=== PATIENT | female | born 1990 | race Caucasian/White ===

== ENCOUNTER → 2022-07-06 11:23 | Outpatient (BNVA) | payer OTHER, SELFPAY | PROVIDERS: Visit Provider Emergency Medicine | DX: R10.9 Unspecified abdominal pain (principal); R11.0 Nausea; R19.8 Other specified symptoms and signs involving the digestive system and abdomen; R10.13 Epigastric pain | CPT/HCPCS: 80053; 83690; 85025 ==

== ENCOUNTER → 2022-07-07 14:38 | Outpatient (BNVA) | payer OTHER, SELFPAY | PROVIDERS: Visit Provider Emergency Medicine | DX: R19.8 Other specified symptoms and signs involving the digestive system and abdomen (principal) | CPT/HCPCS: 87338 ==

== ENCOUNTER 2022-08-01 09:56 | Outpatient (CLI) | payer OTHER, SELFPAY ==
--- NOTE | 2022-08-01 10:00 | US_ITS ---
WS: [id number] RIGHT UPPER QUADRANT ULTRASOUND HISTORY: R10.9 - Unspecified abdominal pain COMPARISON: None available. Liver: 15.5 cm in length. Normal size liver. No bile duct dilatation or mass. Portal Vein: Normal hepatopetal flow with monophasic waveform. Gallbladder: Large amount shadowing gallbladder fossa. Findings are consistent with a stone filled ga llbladder. The wall appears mildly thickened measuring up to 3 mm. No adjacent fluid. CBD: 0.4 cm Pancreas: Normal size and echogenicity. Right kidney: 11.4 cm in length. Normal size and echogenicity. No hydronephrosis or mass. Aorta and IVC: Unremarkable abdominal aorta and IVC. No ascites. US/US gall bladder [id number] IMPRESSION: 1. Cholelithiasis. Stone filled gallbladder. 2. No bile duct dilatation.
== END 2022-08-01 09:57 | disposition home or self-care (01) ==
LOC: RAD 09:57
PROVIDERS: Visit Provider Emergency Medicine
DX: R10.9 Unspecified abdominal pain (principal); K80.20 Calculus of gallbladder without cholecystitis without obstruction
CPT/HCPCS: 76705

== ENCOUNTER 2022-10-03 09:51 | Day surgery (SDC) | payer OTHER, SELFPAY ==
[2022-10-03] VITALS (8 sets, daily range): BP systolic 127–148; BP diastolic 70–112; PULSE 65–85; RESP 14–18; TEMP 36.2–36.5; O2SAT 95–98
[2022-10-03] MEDS: sodium chloride 0.9% 1,000 ML 30 ML IV (10:29)
[2022-10-03] MEDS: acetaminophen 1,000 MG/100 ML PIGGYBACK 400 MG IV (10:34)
[2022-10-03] MEDS: scopolamine 1.5 Patch 1 PATCH TRANSDERMA (10:36)
[2022-10-03] MEDS: heparin 5,000 unit/mL INJ 1 mL 2000 UNIT SUBCUT (10:36)
--- NOTE | 2022-10-03 10:50 | P.HP_ITS ---
Same Day Surgery H&P Indication for Procedure/HPI DATE OF PROCEDURE: October 03, 2022 CHIEF COMPLAINT/INDICATIONFOR SURGICAL PROCEDURE: I am here for gallbladder surgery PREOP DIAGNOSIS: Symptomatic cholelithiasis PLANNED PROCEDURE: Operation Date: 10/03/22 11:30 Proposed Procedures p 04468 lap fani possible open R10.9(Not Applicable) - Sage Stevens MD 07/06/2022 Patient is a 32 year old female who presents for GI issues. Patient stated that yesterday she had ate some gore. 4 hours after eating patient started having sever discomfort in the upper mid abd and esophagus. Patient is nauseous and vomiting. Patient is having discomfort today in upper mid abd and lower esophagus. Patient states this is not the first time with these issues and previously has had diarrhea as a symptoms. Patient tried to take Nexium last night but was unable to keep it down. Patient also seen a [facility]ini doc today. 10/03/2022 Patient comes today for laparoscopic cholecystectomy. Ultrasound gallbladder showed Liver: 15.5 cm in length. Normal size liver. No bile duct dilatation or mass. Portal Vein: Normal hepatopetal flow with monophasic waveform. Gallbladder: Large amount shadowing gallbladder fossa. Findings are consistent with a stone filled gallbladder. The wall appears mildly thickened measuring up to 3 mm. No adjacent fluid. CBD: 0.4 cm Pancreas: Normal size and echogenicity. Right kidney: 11.4 cm in length. Normal size and echogenicity. No hydronephrosis or mass. Aorta and IVC: Unremarkable abdominal aorta and IVC. No ascites. US/US gall bladder [id number] IMPRESSION: ? 1.? Cholelithiasis. Stone filled gallbladder. 2.? No bile duct dilatation. ROS All systems have been reviewed negative except as for the above or per problem list. Medications/Allergies* Home Medications Medication Instructions Recorded Confirmed Type norethindrone acetate 1 mg-ethinyl 1 tab PO DAILY 07/06/22 09/30/22 History estradiol 20 mcg tablet (Junel) Allergies/Adverse Reactions Allergy/AdvReac Type Severity Reaction Status Date / Time No Known Allergies Allergy Verified 08/25/22 17:11 Current Medications: Generic Name Dose Route Start Last Admin Trade Name Freq PRN Reason Stop Dose Admin Sodium Chloride 1,000 mls @ 30 mls/hr 10/03/22 10:15 10/03/22 10:29 Sodium Chloride 0.9% IV 10/04/22 10:14 30 mls/hr .Q24H KATERINE Administration Pertinent History/Comorbid Conditions* Social History Smoking and tobacco status: never smoked Pertinent Exam Findings alert, oriented x 3, regular rate & rhythm and procedure specific exam findings (Abdominal exam nontender nondistended soft) Recommendations Surgery/Procedure today (Laparoscopic cholecystectomy possible open) Other Plans: Plan of care; After thorough history physical examination and reviewing the chart and images with my personal intrepreatation.I counseled the patient for laparoscopic cholecystectomy possible open, indications risks including but not limited injury to the common bile duct and/or other viscera,that may require potential future surgical interventions including but not limited to ERCP and or laparatomy that may include Hepatobiliary surgery.Benefits and alternatives all discussed with the patient, and patient did agree to proceed accordingly. All questions have been answered and all concerns have been addressed to patient's satisfaction. Rationale was carefully and clearly discussed with the patient.Appropriate informed consent have been reviewed and signed. Coding Level of Care Code Acute Food Service Supervisor for Reinaldo Corbett
--- NOTE | 2022-10-03 10:54 | P.ANESASSM_ITS ---
Pre-Anesthetic Assessment Height/Weight: Height 1.7 m Weight 88.904 kg Temp Pulse Resp BP Pulse Ox O2 Del Method 97.2 F L 82 18 141/88 97 10/03/22 10:18 10/03/22 10:18 10/03/22 10:18 10/03/22 10:18 10/03/22 10:18 10/03/22 10:18 Preop Diagnosis: Symptomatic cholelithiasis Operation Date: 10/03/22 11:30 Proposed Procedures p 54957 lap fani possible open R10.9(Not Applicable) - Sage Stevens MD Familial anesthetic complications: None Was Beta Corona taken within 24 hours: N/A Was Clonidine taken within 24 hours: N/A Last intake: Intake Last Liquid Date 10/02/22 Last Liquid Time 20:00 Last Solid Date 10/02/22 Last Solid Time 20:00 Social No alcohol and No tobacco Exam alert, oriented x 3, clear to auscultation bilaterally and regular rate & rhythm Airway Mallampati: Class II Dentition: full GI Gastroesophageal Reflux Disease Anesthetic Plan ASA status: 2 Anesthesia: General Risk of > 500 ml blood loss (7ml/kg in children): No Medications/Allergies Home Medications Medication Instructions Recorded Confirmed Last Taken Type famotidine 20 mg tablet (Acid 20 mg PO BID 6 weeks #84 tabs 07/06/22 09/30/22 09/22/22 Rx Head Baggage Porter (famotidine)) norethindrone acetate 1 mg-ethinyl 1 tab PO DAILY 07/06/22 09/30/22 10/02/22 History estradiol 20 mcg tablet (Junel) Allergies Allergy/AdvReac Type Severity Reaction Status Date / Time No Known Allergies Allergy Verified 08/25/22 17:11 Current Medications Generic Name Dose Route Start Last Admin Trade Name Freq PRN Reason Stop Dose Admin Sodium Chloride 1,000 mls @ 30 mls/hr 10/03/22 10:15 10/03/22 10:29 Sodium Chloride 0.9% IV 10/04/22 10:14 30 mls/hr .Q24H KATERINE Administration PFSH Anesthesia Social History Smoking and tobacco status: never smoked Female Reproductive History Date of last menstrual period: 09/05/22 Spontaneous abortions: No Data Anesthesia Cardiac Studies: No Data to Display
[2022-10-03 11:07] LABS: OR HCG Qualitative Urine Negative (Negative)
[2022-10-03] MEDS: ampicillin-sulbactam 3 GM in sodium chloride 0.9% (plus) 50 ML IV (11:07)
[2022-10-03] MEDS: lidocaine 1% INJ 20 mL INJECTION (11:50)
--- NOTE | 2022-10-03 13:01 | SUR.PHASEI ---
1256 PT TO PACU 5 PT AWAKES TO VOICE, GOOD RESP EFFORT NOTED ORAL AIRWAY OUT ON ARRIVAL, MONITOR SR WITH NO ECTOPY NOTED IV TO LT HAND #20 WITH 100ML NS UP AT KVO RATE PER GRAVITY, ID BRACELET TO RT WRIST , PT ID'D WITH WITH 2 IDENTIFIERS, ABDOMEN SOFT WITH 4 SITES WITH SKIN GLUE D/I BILAT SCDS ON. PT AWAKES AND VERBALLY DENIES PAIN AND NAUSEA.
--- NOTE | 2022-10-03 13:10 | PM.OP ---
Operative Report Date of procedure: October 03, 2022 Pre-op diagnosis: Preop Diagnosis Symptomatic cholelithiasis Post-op findings: Chronic calculus cholecystitis with intrahepatic component Procedure done: Laparoscopic cholecystectomy Implants: Surgicel and Surgi-Linwood Specimens removed/disposition: Gallbladder and contents Surgeon: Sage Stevens MD Milk Condenser: Surgical elmer Soni and Martina Circulating nurse Rupali Anesthesia: General (Billy Garsia and Dr. Hernandez) Estimated blood loss (mL): 25 IV fluids (mL): 800 Procedure: Patient was identified in the holding area and taken back to the operative suite, placed in supine position intubated by anesthesia . Time-out was done verifying the patient's name/date of /planned procedure and destination after the procedure, all were in agreement. SCDs confirmed to be functioning, preoperative antibiotics administered per protocol, and beta maribell protocol was confirmed. Patient was appropriately secured to the table, footboard was applied to the OR table, before prep and drape anesthesia was asked to tilt the table back and forth to make sure that the patient is appropriately secured and she was. Prep and drape of the abdomen was done under the usual sterile technique, followed by that supraumbilical skin incision,skin incision was done by a 15 blade knife, and stay sutures were applied to the fascia and Michaels trocar technique was used to enter the abdominal without injuring any abdominal viscera, started by low flow gas insufflation followed by a high flow, started with a 10 mm laparoscope and under direct vision there was no evidence of any injuries, the scope then switched to a 30? ,10 millimeter scope and under direct visualization 5 millimeter trocar was inserted in the epigastric region followed by two 5 mm trocars were inserted in the right upper quadrant that was done after injection of local lidocaine 2% at all incision sites. Gallbladder showed chronic calculus cholecystitis Patient was then positioned in the head up and tilted to the left. Ratcheted forceps were introduced into the lateral most 5mm port and was applied unto the fundus of the gallbladder cephalad and using Bullet forceps the infundibulum of the gallbladder was retracted laterally. Using [place] forceps then L-hook cautery to dissect the peritoneum overlying the Calot's triangle which was then opened medially and laterally until the cystic duct and the cystic artery were skeletonized. Dissection was carried along the body of the gallbladder and after ensuring critical view of safety was identfied. Cystic duct and cystic artery where seen connected to the gallbladder. Clips were applied on the cystic duct towards the common bile duct 1 towards the gallbladder then divided is in sharp scissors, 2 clips were then applied onto the cystic artery and 1 towards the gallbladder and divided by sharp scissors. Additional vessel was clipped and divided. Dissection was then carried along of the gallbladder from the gallbladder fossa using cautery as well as sharp dissection with heat energy. The gallbladder then was dissected out from the gallbladder fossa totally, noticed there was intrahepatic component, cholecystectomy was then achieved and was placed in an Endo Catch bag and then retrieved from the Michaels trocar site under direct visualization using a 5 mm 30? scope through the epigastric trocar, specimen was then passed to the circulating nurse to go for permanent pathology,irrigation and hemostasis was done to the gallbladder fossa after hemostasis was secured by application of Surgicel and Surgi-Linwood, final survey laparoscopy was done that showed no injuries. Suction irrigation was obtained The supraumbilical fascial defect was then closed using interrupted number one PDS sutures using a fascial closure device ;Avi Gambino under direct visualization following that Gas was allowed to deflate,Trocars were then taken out under direct vision there was no evidence of bleeding. Specimen was passed to the circulating nurse for permanent pathology. No drains were placed and the supraumbilical incision as well as all trocar sites were closed by 3/0 Vicryl followed by 4-0 Monocryl to approximate the skin edges of the incisions , dressing was applied in the form of surical glue and the patient patient got extubated and was taken to recovery area in a stable condition. Count of sponges,needles and instruments were completed at the end of the procedure I was present for the whole entire procedure.
--- NOTE | 2022-10-03 13:17 | SUR.PHASEI ---
PT AWAKES EASILLY TO VOICE GOOD RESP EFFORT, VSS PT GIVEN WARM BLANKETS X3 FOR SHIVERING, PT RESTING QUIETLY NOW, NO SHIVERING.
[2022-10-03] MEDS: HYDROcodone-acetaminophen 5-325 mg Tablet 1 TAB PO (13:52)
--- NOTE | 2022-10-03 14:25 | ANE.PACU2 ---
Inpatient post-anesthesia follow up: Airway intact: Yes Vital signs: Temperature 97.7 F Pulse Rate 76 Respiratory Rate 18 Blood Pressure 148/98 Pulse Oximetry 97 Oxygen Delivery Me thod Room Air Oxygen Flow Rate Fraction of Inspir ed Oxygen Hydration adequate: Yes Nausea and vomiting: No Pain level: 2 Mental status: Baseline
== END 2022-10-03 14:26 | disposition home or self-care (01) ==
PROVIDERS: Anesthesiology; Visit Provider Surgery
PROC: 0FT44ZZ Resection of Gallbladder, Percutaneous Endoscopic Approach (ICD-10-PCS; CPT 47562; principal; 2022-10-03 11:20)
DX: K80.10 Calculus of gallbladder with chronic cholecystitis without obstruction (principal); K21.9 Gastro-esophageal reflux disease without esophagitis
CPT/HCPCS: 47562; 81025; 84703; 88304; J0131; J0295; J1100; J1170; J1200; J1644; J2250; J2405; J2704; J3010; J3490; J7030